=== PATIENT | female | born 1990 | race Caucasian/White ===

== ENCOUNTER 2022-07-27 23:48 | Emergency (ER) | payer SELFPAY ==
[~2022-07-27] VITALS: Ht 160 cm; Wt 50.0 kg
[2022-07-27 23:51] VITALS: BP 118/78
== END 2022-07-28 03:28 | disposition home or self-care (01) ==
LOC: ER 23:48
DX: F41.9 Anxiety disorder, unspecified (principal)
CPT/HCPCS: 81025; 99283

== ENCOUNTER 2022-07-28 03:55 | Emergency (ER) | payer BC ==
[~2022-07-28] VITALS: Ht 165.1 cm; Wt 59.0 kg
[2022-07-28] MEDS ORDERED: ALPRAZOLAM 0.5 MG TABLET PO ONE (06:15)
[2022-07-28] MEDS ORDERED: IBUPROFEN 600MG TABLET PO ONE (06:15)
[2022-07-28 06:17] VITALS: BP 145/94
== END 2022-07-28 06:36 | disposition home or self-care (01) ==
LOC: ER 03:55
DX: Z76.0 Encounter for issue of repeat prescription (principal); F15.10 Other stimulant abuse, uncomplicated
CPT/HCPCS: 99283